=== PATIENT | male | born 1975 | race Hispanic/Latino ===

== ENCOUNTER → 2016-09-23 | Outpatient (CLI) | payer OTHER ==
[~2016-09-23] MED LIST: FURO20TA4 PO; LISI2.5T PO; METO-351 PO; POTA10TA PO
--- OUTSIDE RECORDS SUMMARY | 2016-09-23 09:17 | XMS REPORT | Continuity of Care Document ---
Author Author [facility] Organization [facility] Address Unknown Phone Unavailable Care Team Providers Care Technical Engineer Name Role Phone FERNANDO THACKER DO PCP Insurance Providers Payer Name Policy Number Subscriber Name Relationship Self Pay Approved Full Kitty [id number] Dalton Quispe 19 Self / Same As Patient Advance Directives Directive Response Recorded Date/Time Advance Directives No 06/24/16 9:33am Health Care Power of Cloth Picker No 06/24/16 9:33am Organ Donor Yes 06/24/16 9:33am Resuscitation Status Full Code 06/24/16 9:33am Problems Active Problems Medical Problem Onset Date Status Aortic stenosis Unknown Acute Medications Current Home Medications Medication Dose Units Route Directions Days/Qty Instructions Start Date Furosemide 20 Mg 20 Mg Oral Daily 30 06/24/16 Potassium Chloride (K-Dur) 10 Meq 10 Meq Oral Daily 30 06/24/16 Lisinopril 2.5 Mg 2.5 Mg Oral Daily 30 06/24/16 Metoprolol Succinate 25 Mg 25 Mg Oral Daily 30 06/24/16 Social History Social History Problem Response Recorded Date/Time Recent Foreign Travel No 06/24/2016 9:24am Recent Infectious Disease Exposure No 06/24/2016 9:24am Smoking Status Never a Smoker 06/24/2016 9:25am Query Response Start Date Stop Date Smoking Status Never a Smoker Hospital Discharge Instructions Patient Instructions Physician Instructions Follow Up/Plan Follow up with CV Surgery at [facility] as scheduled by them Follow up with Dr Suárez in 1-2 weeks CARDIAC CATH DISCHARGE INSTRUCTIONS *Hold Metformin for 48 hours post heart cath. ACTIVITY * Go Home directly and rest. * Limit activity of the leg (or wrist if it was used) for 7 days including aerobics, swimming, jogging, bicycling, etc. * Restrict stair-climbing for 7 days if possible, if not, climb up with your non-cath leg, then bring together on the same step. * Avoid lifting, pushing, pulling or excessive movement of the affected extremity for 7 days. * Customary sexual activity may be resumed after 2 days-use caution not to use a position that strains or causes pain to the affected extremity. * No driving for 24 hours. * NO SMOKING. * Avoid straining for bowel movements for 7 days. * Gentle walking on level ground is allowed. * Returning to work will depend on the type of procedure and the results. Your doctor will discuss this with you. CALL YOUR DOCTOR FOR ANY OF THE FOLLOWING: *If bleeding from the puncture site occurs- Apply gentle pressure to site with clean cloth and call your doctor or EMS. * If a knot or lump forms under the skin, increases in size, or causes pain. * If bruising appears to be worsening or moving further down your leg instead of disappearing. * Temperature above 101 F. CARE OF YOUR GROIN INCISION; * Bruising or purple discoloration of the skin near the puncture site is common. * You may shower only, no bathtub bathing for 5 days. Be careful to avoid slipping as your leg may feel stiff. * If a closure device was used on your femoral artery, please see the attached guide regarding care of the device and your leg. * REMOVE the dressing from your groin the next day after your procedure in the shower. CARE OF YOUR WRIST INCISION; * Bruising or purple discoloration of the skin near the puncture site is common. * You may shower. * DO NOT submerge wrist. * Remove dressing in 24 hours. Plan of Care Discharge Date 06/24/16 4:30pm Instructions/Education Provided CARDIAC CATH DISCHARGE INSTRUC Prescriptions See Medication Section Follow-up Orders BMP-Basic Metabolic Panel MG-Magnesium Functional Status Query Response Date Recorded Patient Orientation Person Place Time June 24, 2016 5:08pm Allergies, Adverse Reactions, Alerts No known allergies. Immunizations No immunization records. Vital Signs Acute Vital Signs Vital Response Date/Time Temperature (Fahrenheit) 97.8 degrees F (97.6 - 99.5) 06/24/2016 4:30pm Temperature (Calculated Celsius) 36.22739 degrees C (36.4 - 37.5) 06/24/2016 4:00pm Temperature Source Temporal 06/24/2016 4:30pm Pulse Rate (adult) 98 bpm (60 - 90) 06/24/2016 4:30pm Respiratory Rate 18 bpm (12 - 24) 06/24/2016 4:30pm O2 Sat by Pulse Oximetry 97 % (88 - 100) 06/24/2016 4:30pm Blood Pressure 109/78 mm Hg 06/24/2016 4:30pm Blood Pressure Mean 88 mm Hg 06/24/2016 4:00pm Pain Numeric Pain Scale 0-No Pain 06/24/2016 4:30pm Height (Feet) 5 feet 06/24/2016 9:31am Height (Inches) 8.00 inches 06/24/2016 9:31am Height (Calculated Centimeters) 172.246333 cm 06/24/2016 9:31am Weight (Pounds) 172 pounds 06/24/2016 9:31am Weight (Ounces) 0.0 oz 06/24/2016 9:31am Weight (Calculated Grams) 45854.89 gm 06/24/2016 9:31am Weight (Calculated Kilograms) 78.781906 kilograms 06/24/2016 9:31am Calculated BMI 26.2 06/24/2016 9:31am Capillary Refill Capillary Refill Less Than 3 Seconds 06/24/2016 4:00pm Results Pending Laboratory Results Test Name Collection Date/Time Procedures Procedure Status Date Provider(s) Color Doppler echocardiography Active 06/02/16 CHACHA RUCKER APRN Tracing only of electrocardiogram Active 06/24/16 MICHAEL SUÁREZ MD, FACP FAC CCDS Encounters Encounter Location Arrival/Admit Date Discharge/Depart Date Attending Provider Departed [facility] 06/24/16 9:09am 4:30pm MICHAEL SUÁREZ FACP, MD, FACC Registered Clinic [facility] 06/02/16 2:53pm CHACHA RUCKER APRN Recent Diagnosis Aortic stenosis
--- NOTE | 2016-10-08 10:02 | ECHOCARDIOGRAPHY REPORT ---
PROCEDURE PHYSICIAN: MICHAEL VELEZ DATE OF PROCEDURE: 09/23/2016 TWO DIMENSIONAL ECHOCARDIOGRAM REPORT PRIMARY PHYSICIAN: OTHER PHYSICIAN: REFERRING PHYSICIAN: ORDERING PHYSICIAN: INDICATION FOR THE PROCEDURE: Aortic stenosis, status post aortic valve replacement, history of chronic systolic and diastolic congestive heart failure. MEASUREMENTS DERIVED VALUES LV DIAMETER (LAX) NORMALS NORMALS Diastolic 3.8 (3.6-5.2) Eject. Fract. (60%+/-6%) Systolic (2.3-3.9) Diastolic Vol. % Shortening (0.22-0.42) Systolic Vol. Aortic Root 3.5 IVS THICKNESS Diastolic 1.3 (0.6-1.1) LVPW THICKNESS Diastolic 1.4 (0.6-1.1) LA DIAMETER Systolic 3.8 (2.1-3.7) DESCRIPTION: Two-dimensional echocardiography shows well preserved global left ventricular systolic function. Left ventricular ejection fraction is 50 to 55%. There does not appear to be distinct regional wall motion abnormality. Mitral and tricuspid valve leaflets show good leaflet excursion. There is mild concentric left ventricular hypertrophy. Aortic valve leaflet structure is not well visualized. There does not appear to be significant pericardial effusion. Doppler imaging showed mild mitral and tricuspid regurgitation. Pulmonary artery systolic pressure is estimated to be approximately 30 to 35 mmHg. Peak pressure gradient across the aortic valve is approximately 15 mmHg and the aortic valve area is calculated to be approximately 1.3 mmHg. There is no evidence of significant intracardiac shunt. Inferior vena cava does not appear to be dilated. CONCLUSION: 1. History of aortic valve replacement, details unknown. The aortic valve structure is not adequately visualized on this study. Peak gradient across the aortic valve is approximately 15 mmHg and aortic valve area is calculated to be approximately 1.3 sq cm. 2. Well preserved global left ventricular systolic function with an ejection fraction of 50 to 55%. 3. Mild mitral and tricuspid regurgitation. 4. Pulmonary artery systolic pressure is estimated to be approximately 30 to 35 mmHg 30 mmHg. Job ID: [id number] Dictated Date: 10/07/2016 14:14:28 Administrative Services Manager Date: 10/08/2016 09:53:35 / jeffy
== END ==
LOC: CARD 08:55
PROVIDERS: ATTEND Internal Medicine Cardiovascular Disease
DX: I35.1 Nonrheumatic aortic (valve) insufficiency (principal); I35.0 Nonrheumatic aortic (valve) stenosis; R73.01 Impaired fasting glucose; I50.42 Chronic combined systolic (congestive) and diastolic (congestive) heart failure; Z95.2 Presence of prosthetic heart valve
CPT/HCPCS: 93306

== ENCOUNTER → 2016-09-24 | Outpatient (CLI) | payer OTHER ==
--- OUTSIDE RECORDS SUMMARY | 2016-09-24 09:58 | XMS REPORT | Continuity of Care Document ---
Author Author [facility] Organization [facility] Address Unknown Phone Unavailable Care Team Providers Care Hot Dimpling Machine Operator Name Role Phone FERNANDO THACKER DO PCP Insurance Providers Payer Name Policy Number Subscriber Name Relationship Self Pay Approved Full Kitty [id number] Dalton Quispe 19 Self / Same As Patient Advance Directives Directive Response Recorded Date/Time Advance Directives No 06/24/16 9:33am Health Care Power of Script Girl No 06/24/16 9:33am Organ Donor Yes 06/24/16 [...] Up/Plan Follow up with CV Surgery at [facility] as scheduled by them Follow up with [...] - 99.5) 06/24/2016 4:30pm Temperature (Calculated Celsius) 36.56438 degrees C (36.4 - 37.5) 06/24/2016 4:00pm [...] 8.00 inches 06/24/2016 9:31am Height (Calculated Centimeters) 172.135190 cm 06/24/2016 9:31am Weight (Pounds) 172 pounds 06/24/2016 9:31am Weight (Ounces) 0.0 oz 06/24/2016 9:31am Weight (Calculated Grams) 55125.89 gm 06/24/2016 9:31am Weight (Calculated Kilograms) 78.102032 kilograms 06/24/2016 9:31am Calculated BMI 26.2 06/24/2016 [...] Attending Provider Departed [facility] 06/24/16 9:09am 4:30pm MICHAEL SUÁREZ FACP, MD, FACC Registered Clinic [facility] 06/02/16 2:53pm CHACHA RUCKER APRN Recent Diagnosis Aortic stenosis
[2016-09-24 10:19] LABS: BASOPHILS % (AUTO) 0 % (0-10); EOSINOPHILS # (AUTO) 0.1 10^3/uL (0.0-0.3); EOSINOPHILS % (AUTO) 1 % (0-10); LYMPHOCYTES # (AUTO) 2.1 X 10^3 (1.0-4.0); LYMPHOCYTES % (AUTO) 30 % (12-44); MEAN CORPUSCULAR HEMOGLOBIN 29 PG (25-34); MEAN CORPUSCULAR HGB CONC 33 G/DL (32-36); MEAN CORPUSCULAR VOLUME 86 FL (80-99); MONOCYTES # (AUTO) 0.5 X 10^3 (0.0-1.0); MONOCYTES % (AUTO) 7 % (0-12); NEUTROPHILS # (AUTO) 4.3 X 10^3 (1.8-7.8); NEUTROPHILS % (AUTO) 61 % (42-75); PLATELET COUNT 250 10^3/uL (130-400); RED BLOOD COUNT 4.82 10^6/uL (4.35-5.85); RED CELL DISTRIBUTION WIDTH 13.3 % (10.0-14.5)
[2016-09-24 10:37] LABS: ALANINE AMINOTRANSFERASE 16 U/L (0-55); ANION GAP 6 MMOL/L (5-14); ASPARTATE AMINO TRANSFERASE 22 U/L (5-34); BILIRUBIN,TOTAL 0.5 MG/DL (0.1-1.0); BLOOD UREA NITROGEN 16 MG/DL (7-18); BUN/CREATININE RATIO 18; CARBON DIOXIDE 30 MMOL/L (21-32); CHLORIDE 103 MMOL/L (98-107); CHOLESTEROL 118 MG/DL (< 200); CREATININE SERUM 0.89 MG/DL (0.60-1.30); DIRECT LDL 61 MG/DL (1-129); GFR ESTIMATED > 60; GLUCOSE 103 MG/DL (70-105); POTASSIUM 4.4 MMOL/L (3.6-5.0); SODIUM 139 MMOL/L (135-145); TOTAL PROTEIN 6.7 G/DL (6.4-8.2); TRIGLYCERIDES 142 MG/DL (<150); VLDL CHOLESTEROL 28 MG/DL (5-40)
== END ==
LOC: LAB 09:33
PROVIDERS: ATTEND Internal Medicine Cardiovascular Disease
DX: I35.1 Nonrheumatic aortic (valve) insufficiency (principal); I35.0 Nonrheumatic aortic (valve) stenosis; R73.01 Impaired fasting glucose; I50.42 Chronic combined systolic (congestive) and diastolic (congestive) heart failure; Z95.2 Presence of prosthetic heart valve
CPT/HCPCS: 36415; 80053; 80061; 85025

== ENCOUNTER → 2016-10-13 | Outpatient (CLI) | payer OTHER ==
--- OUTSIDE RECORDS SUMMARY | 2016-10-13 10:07 | XMS REPORT | Continuity of Care Document ---
Author Author [facility] Organization [facility] Address Unknown Phone Unavailable Care Team Providers Care Adapted Physical Education Teacher Name Role Phone FERNANDO THACKER DO PCP Insurance Providers Payer Name Policy Number Subscriber Name Relationship Self Pay Approved Full Kitty [id number] Dalton Quispe 19 Self / Same As Patient Advance Directives Directive Response Recorded Date/Time Advance Directives No 06/24/16 9:33am Health Care Power of Global Position System Technician No 06/24/16 9:33am Organ Donor Yes 06/24/16 [...] Up/Plan Follow up with CV Surgery at [facility] as scheduled by them Follow up with [...] - 99.5) 06/24/2016 4:30pm Temperature (Calculated Celsius) 36.19820 degrees C (36.4 - 37.5) 06/24/2016 4:00pm [...] 8.00 inches 06/24/2016 9:31am Height (Calculated Centimeters) 172.483947 cm 06/24/2016 9:31am Weight (Pounds) 172 pounds 06/24/2016 9:31am Weight (Ounces) 0.0 oz 06/24/2016 9:31am Weight (Calculated Grams) 74369.89 gm 06/24/2016 9:31am Weight (Calculated Kilograms) 78.482948 kilograms 06/24/2016 9:31am Calculated BMI 26.2 06/24/2016 [...] Attending Provider Departed [facility] Day [facility] 06/24/16 9:09am 4:30pm MICHAEL SUÁREZ FACP, MD, FACC Registered Clinic [facility] 06/02/16 2:53pm CHACHA RUCKER APRN Recent Diagnosis Aortic stenosis
== END ==
LOC: LAB 10:04
PROVIDERS: ATTEND Nurse Practitioner Family
DX: E78.2 Mixed hyperlipidemia (principal)

== ENCOUNTER → 2018-08-27 | Outpatient (CLI) | payer SELFPAY | LOC: CARD 11:28 | PROVIDERS: ATTEND Internal Medicine Cardiovascular Disease | DX: I10 Essential (primary) hypertension (principal); I49.3 Ventricular premature depolarization; Z95.2 Presence of prosthetic heart valve; I35.0 Nonrheumatic aortic (valve) stenosis | CPT/HCPCS: 93306 ==

== ENCOUNTER → 2019-08-29 | Outpatient (CLI) | payer OTHER | LOC: CARD 13:21 | PROVIDERS: ATTEND Internal Medicine Cardiovascular Disease | DX: I35.0 Nonrheumatic aortic (valve) stenosis (principal); I10 Essential (primary) hypertension; Z95.2 Presence of prosthetic heart valve | CPT/HCPCS: 93306 ==

== ENCOUNTER → 2022-02-28 | Outpatient (CLI) | payer MEDICAID ==
[~2022-02-28] MED LIST changes: -LISI2.5T PO; +LISI2.5T13 PO
== END ==
LOC: CARD 11:30
PROVIDERS: ATTEND Internal Medicine Cardiovascular Disease
DX: I08.3 Combined rheumatic disorders of mitral, aortic and tricuspid valves (principal); I42.0 Dilated cardiomyopathy; Z95.2 Presence of prosthetic heart valve
CPT/HCPCS: 93306